=== PATIENT | male | born 1955 | race Caucasian/White ===

== ENCOUNTER 2022-02-27 15:05 | Emergency (ER) | payer MEDICARE, OTHER ==
[2022-02-27] MEDS ORDERED: Ketorolac Tromethamine 30 MG/ML VIAL ONE (16:25)
[2022-02-27] MEDS ORDERED: Diazepam 5 MG TAB ONE (16:25)
[2022-02-27] MEDS ORDERED: traMADol HCl 50 MG TAB ONE (18:19)
[2022-02-27] MEDS ORDERED: Acetaminophen 500 MG TAB ONE (18:20)
== END 2022-02-27 18:32 | disposition home or self-care (01) ==
LOC: ERS 15:05
DX: M54.50 Low back pain, unspecified (principal); G89.29 Other chronic pain; E10.9 Type 1 diabetes mellitus without complications; E78.5 Hyperlipidemia, unspecified; E78.00 Pure hypercholesterolemia, unspecified; F17.210 Nicotine dependence, cigarettes, uncomplicated
CPT/HCPCS: 96372; 99283; J1885

== ENCOUNTER 2022-04-13 13:59 | Emergency (ER) | payer MEDICARE ==
[2022-04-13 15:19] LABS: Hemoglobin 15.6 g/dL (14.0-18.0); Mean Corpuscular HGB CONC 32.8 g/dL (32.0-36.0); Mean Corpuscular Hemoglobin 29.9 pg (27.0-31.0); Mean Corpuscular Volume 91.2 fL (78.0-98.0); Mean Platelet Volume 9.2 fL (7.4-10.4); Platelet Count 165 thou/uL (130-400); RBC Distribution Width 12.9 % (11.5-14.5); Red Blood Cell (RBC) Count 5.23 mill/uL (4.70-6.10); White Blood Cell (WBC) Count 7.1 thou/uL (4.8-10.8)
[2022-04-13 15:31] LABS: Lymphocytes 14 % (21-51); MDiff Complete? YES; Monocytes 6 % (0-10); Neutrophil 70 % (42-75); Platelet Morphology Comment Appears Adequate; RBC Morphology Normal; Reactive Lymphocytes 10 % (0-10)
[2022-04-13 15:40] LABS: ALT (SGPT) 22 U/L (8-55); AST (SGOT) 18 U/L (5-34); Albumin 3.8 g/dL (3.4-4.8); Alkaline Phosphatase 102 U/L (40-110); Anion Gap 14 mmol/L (10-20); BUN (Urea Nitrogen) 12 mg/dL (8.4-25.7); Bilirubin, Total 0.5 mg/dL (0.2-1.2); CK (CPK) 50 U/L (30-200); Calc. Creatinine Clearance 0 mL/min (70-130); Calcium 9.7 mg/dL (7.8-10.44); Carbon Dioxide 25 mmol/L (23-31); Chloride 99 mmol/L (98-107); Estimated GFR 78; Globulin 2.9 g/dL (2.4-3.5); Glucose 481 mg/dL (80-115); Potassium 4.5 mmol/L (3.5-5.1); Protein, Total 6.7 g/dL (5.8-8.1); Sodium 133 mmol/L (136-145)
== END 2022-04-13 17:28 | disposition home or self-care (01) ==
LOC: ERS 13:59
DX: E10.65 Type 1 diabetes mellitus with hyperglycemia (principal); Z76.0 Encounter for issue of repeat prescription; F17.210 Nicotine dependence, cigarettes, uncomplicated; E78.5 Hyperlipidemia, unspecified; E78.00 Pure hypercholesterolemia, unspecified
CPT/HCPCS: 36415; 36416; 71045; 80053; 82550; 83605; 83880; 84484; 85025; 96360; 96361

== ENCOUNTER 2022-10-26 16:52 | Inpatient (IN) | payer MEDICARE ==
[2022-10-26] MEDS ORDERED: Morphine 4 MG/ML VIAL ONE (17:17)
[2022-10-26 17:50] LABS: #Eosinphils 0.1 thou/uL (0.0-0.7); #Lymphocytes 2.3 thou/uL (1.20-3.40); #Monocytes 0.5 thou/uL (0.11-0.59); #Neutrophils 4.9 thou/uL (1.40-6.50); %Basophils 0.1 % (0.0-1.0); %Eosinophils 1.7 % (0.0-10.0); %Lymphocytes 28.9 % (21.0-51.0); %Monocytes 6.8 % (0.0-10.0); %Neutrophils 62.5 % (42.0-75.0); Mean Corpuscular HGB CONC 32.1 g/dL (32.0-36.0); Mean Corpuscular Hemoglobin 29.1 pg (27.0-31.0); Mean Corpuscular Volume 90.4 fl (78.0-98.0); Mean Platelet Volume 8.5 fL (7.4-10.4); Platelet Count 171 10x3/uL (130-400); White Blood Cell (WBC) Count 7.9 10x3/uL (4.8-10.8)
[2022-10-26 18:08] LABS: ALT (SGPT) 29 U/L (8-55); AST (SGOT) 19 U/L (5-34); Alkaline Phosphatase 87 U/L (40-110); Anion Gap 17 mmol/L (10-20); BUN (Urea Nitrogen) 17 mg/dL (8.4-25.7); Bilirubin, Total 0.4 mg/dL (0.2-1.2); Calc. Creatinine Clearance 0 mL/min (70-130); Calcium 9.3 mg/dL (7.8-10.44); Carbon Dioxide 22 mmol/L (23-31); Chloride 102 mmol/L (98-107); Estimated GFR 80; Globulin 2.9 g/dL (2.4-3.5); Glucose 349 mg/dL (80-115); Potassium 4.2 mmol/L (3.5-5.1); Protein, Total 6.9 g/dL (5.8-8.1); Sodium 137 mmol/L (136-145)
[2022-10-26] MEDS ORDERED: Aspirin 325 MG TAB ONE (20:37)
[2022-10-26] MEDS ORDERED: Acetaminophen 325 MG TAB PO PRN (20:50)
[2022-10-26] MEDS ORDERED: Dextrose 5% in Water 1,000 ML IV PRN (21:16)
[2022-10-26] MEDS ORDERED: HumaLOG 300 UNITS/3 ML VIAL SC PRN (21:16)
[2022-10-26] MEDS ORDERED: Dextrose 50% Abboject 50 ML SYRINGE SLOW IVP PRN (21:16)
[2022-10-26 21:20] LABS: Hemoglobin A1c 9.3 % (4.0-6.0)
[2022-10-26] MEDS ORDERED: Ibuprofen 600 MG TAB PO PRN (21:44)
[2022-10-26] MEDS ORDERED: Gabapentin 300 MG CAP PO SCH (22:30)
[2022-10-27] MEDS: Acetaminophen 325 MG TAB PO SCH ×4 (00:37→18:26)
[2022-10-27 02:06] VITALS: BMI 31.1
[2022-10-27] MEDS: HumaLOG 300 UNITS/3 ML VIAL SC PRN ×3 (05:24→18:26)
[2022-10-27 06:55] LABS: Cardiac Risk 4.3 (Less than 4.5)
[2022-10-27] MEDS: Gabapentin 300 MG CAP PO SCH ×3 (08:45→21:36)
[2022-10-27] MEDS: Lisinopril 5 MG TAB PO SCH (08:46)
[2022-10-27] MEDS: Aspirin 81 mg Enteric Coated Tablet PO SCH (08:46)
[2022-10-27] MEDS: Empagliflozin 10 MG TAB PO SCH (08:46)
[2022-10-27] MEDS: Atorvastatin Calcium 40 MG TAB PO SCH (08:47)
[2022-10-27] MEDS: Brimonidine Tartrate 0.2% Ophth Soln 5 ml Bottle EA EYE SCH ×2 (08:48→21:36)
[2022-10-27] MEDS: HumuLIN 70/30 (300 UNITS/3 ML VIAL) SC SCH ×2 (08:48→21:34)
[2022-10-27] MEDS: Timolol 0.5% Ophth Soln 5 ml Bottle EA EYE SCH ×2 (08:49→21:35)
[2022-10-27] MEDS ORDERED: Gabapentin 300 MG CAP PO SCH (09:00)
[2022-10-27] MEDS ORDERED: Clopidogrel Bisulfate 75 MG TAB PO SCH (11:00)
[2022-10-28] MEDS: Acetaminophen 325 MG TAB PO SCH ×5 (01:36→23:57)
[2022-10-28] MEDS: Gabapentin 300 MG CAP PO SCH ×3 (08:46→20:59)
[2022-10-28] MEDS: Aspirin 81 mg Enteric Coated Tablet PO SCH (08:47)
[2022-10-28] MEDS: Lisinopril 5 MG TAB PO SCH (08:47)
[2022-10-28] MEDS: Empagliflozin 10 MG TAB PO SCH (08:47)
[2022-10-28] MEDS: Atorvastatin Calcium 40 MG TAB PO SCH (08:47)
[2022-10-28] MEDS: HumuLIN 70/30 (300 UNITS/3 ML VIAL) SC SCH ×2 (08:47→20:57)
[2022-10-28] MEDS: Clopidogrel Bisulfate 75 MG TAB PO SCH (08:47)
[2022-10-28] MEDS: Timolol 0.5% Ophth Soln 5 ml Bottle EA EYE SCH ×2 (08:48→21:00)
[2022-10-28] MEDS: Brimonidine Tartrate 0.2% Ophth Soln 5 ml Bottle EA EYE SCH ×2 (08:48→21:00)
[2022-10-28] MEDS: metFORMIN XR 500 MG TAB PO SCH (08:57)
[2022-10-29] MEDS: HumuLIN 70/30 (300 UNITS/3 ML VIAL) SC SCH ×2 (01:28→09:37)
[2022-10-29 05:53] LABS: Anion Gap 13 mmol/L (10-20); BUN (Urea Nitrogen) 14 mg/dL (8.4-25.7); Calc. Creatinine Clearance 127 mL/min (70-130); Carbon Dioxide 21 mmol/L (23-31); Chloride 106 mmol/L (98-107); Estimated GFR 97; Glucose 146 mg/dL (80-115); Magnesium 1.6 mg/dL (1.6-2.6); Phosphorus 3.8 mg/dL (2.3-4.7); Potassium 3.4 mmol/L (3.5-5.1); Sodium 137 mmol/L (136-145)
[2022-10-29] MEDS: Acetaminophen 325 MG TAB PO SCH ×2 (05:54→12:14)
[2022-10-29] MEDS: HumaLOG 300 UNITS/3 ML VIAL SC PRN (05:56)
[2022-10-29] MEDS ORDERED: Potassium Chloride 20 MEQ TAB PO SCH (06:30)
[2022-10-29] MEDS: Gabapentin 300 MG CAP PO SCH ×2 (08:50→15:03)
[2022-10-29] MEDS: Brimonidine Tartrate 0.2% Ophth Soln 5 ml Bottle EA EYE SCH (09:31)
[2022-10-29] MEDS: Timolol 0.5% Ophth Soln 5 ml Bottle EA EYE SCH (09:31)
[2022-10-29] MEDS: metFORMIN XR 500 MG TAB PO SCH (09:40)
[2022-10-29] MEDS: Lisinopril 5 MG TAB PO SCH (09:40)
[2022-10-29] MEDS: Atorvastatin Calcium 40 MG TAB PO SCH (09:41)
[2022-10-29] MEDS: Aspirin 81 mg Enteric Coated Tablet PO SCH (09:42)
[2022-10-29] MEDS: Empagliflozin 10 MG TAB PO SCH (09:42)
[2022-10-29] MEDS: Clopidogrel Bisulfate 75 MG TAB PO SCH (09:42)
[2022-10-29 11:19] VITALS: BP 117/58; TEMP 97.5
== END 2022-10-29 16:05 | disposition home health service (06) | DRG 65 ==
LOC: ERS 16:52 → ERHOLD 20:23 → NEURO 10-27 00:03 → OBSVTOIN 10-27 11:14
PROVIDERS: ADMIT Student in an Organized Health Care Education/Training Program; ATTEND Student in an Organized Health Care Education/Training Program
DX: I63.89 Other cerebral infarction (principal); G81.94 Hemiplegia, unspecified affecting left nondominant side; S22.42XA Multiple fractures of ribs, left side, initial encounter for closed fracture; W18.30XA Fall on same level, unspecified, initial encounter; I08.3 Combined rheumatic disorders of mitral, aortic and tricuspid valves; M47.816 Spondylosis without myelopathy or radiculopathy, lumbar region; I10 Essential (primary) hypertension; E11.42 Type 2 diabetes mellitus with diabetic polyneuropathy; E11.319 Type 2 diabetes mellitus with unspecified diabetic retinopathy without macular edema; K21.9 Gastro-esophageal reflux disease without esophagitis; G89.29 Other chronic pain; F41.1 Generalized anxiety disorder; F17.210 Nicotine dependence, cigarettes, uncomplicated; E11.65 Type 2 diabetes mellitus with hyperglycemia; H40.9 Unspecified glaucoma; E66.9 Obesity, unspecified; E87.6 Hypokalemia; Z79.82 Long term (current) use of aspirin; Z79.899 Other long term (current) drug therapy; Z79.4 Long term (current) use of insulin; Z83.3 Family history of diabetes mellitus; Z90.49 Acquired absence of other specified parts of digestive tract; E78.00 Pure hypercholesterolemia, unspecified
CPT/HCPCS: 36415; 36416; 70450; 70551; 71045; 72100; 72170; 72192; 80048; 80053; 80061; 83036; 83735; 84100; 84443; 84484; 85025; 93005; 93306; 93880; 96372; 96374; G0378; J1650; J1815; J2270